=== PATIENT | female | born 2000 | race African-American/Black ===

== ENCOUNTER 2018-07-28 20:02 | Emergency (ER) | payer MEDICAID, SELFPAY ==
[2018-07-28 20:03] VITALS: BP 127/83; PULSE 83; RESP 16; TEMP 36.4; O2SAT 98; BMI 32.6
--- NOTE | 2018-07-28 20:06 | ED.RN ---
PT [facility]BS PRIOR TO EKG, STATING THAT SHE DID NOT WANT TO WAIT.
== END 2018-07-28 20:15 | disposition left against medical advice (07) ==
LOC: ED 20:09
PROVIDERS: Emergency Provider Emergency Medicine
DX: R69 Illness, unspecified (principal)

== ENCOUNTER → 2025-03-08 | Outpatient (CLI) | payer MEDICAID, SELFPAY ==
[2025-03-12 07:07] LABS: QNTFERON TB Mitogen Value > 10.00 IU/mL (.); QNTFERON TB Nil Value 0.03 IU/mL (.); QNTFERON TB1+ Ag Value 0.04 IU/mL (.); QNTFERON TB2+ Ag Value 0.04 IU/mL (.); QNTIFERON TB Positive Criteria Negative (Negative)
== END | disposition home or self-care (01) ==
LOC: MTLAB 12:39
PROVIDERS: PCP Family Medicine; Referring Provider Physician Assistant; Visit Provider Physician Assistant
DX: L40.0 Psoriasis vulgaris (principal)
CPT/HCPCS: 36415; 86480